=== PATIENT | male | born 1965 | race Caucasian/White ===

== ENCOUNTER 2019-05-17 12:02 | Emergency (ER) | payer MEDICARE ==
[2019-05-17 12:25] LABS: #Basophils 0.1 thou/uL (0.0-0.2); #Eosinphils 0.2 thou/uL (0.0-0.7); #Lymphocytes 2.6 thou/uL (1.20-3.40); #Monocytes 0.7 thou/uL (0.11-0.59); #Neutrophils 10.4 thou/uL (1.40-6.50); %Basophils 0.7 % (0.0-1.0); %Eosinophils 1.2 % (0.0-10.0); %Monocytes 4.8 % (0.0-10.0); %Neutrophils 74.3 % (42.0-75.0); Hemoglobin 16.2 g/dL (14.0-18.0); Mean Corpuscular HGB CONC 33.7 g/dL (32.0-36.0); Mean Corpuscular Hemoglobin 31.3 pg (27.0-31.0); Mean Corpuscular Volume 92.9 fL (78.0-98.0); Mean Platelet Volume 7.8 fL (7.4-10.4); Platelet Count 322 thou/uL (130-400); RBC Distribution Width 11.9 % (11.5-14.5); Red Blood Cell (RBC) Count 5.17 mill/uL (4.70-6.10); White Blood Cell (WBC) Count 13.9 thou/uL (4.8-10.8)
--- NOTE | 2019-05-17 12:31 | CT ---
CT Brain WO Con: 05/17/2019 12:00 AM CLINICAL HISTORY: Fall with right frontal scalp laceration and headache. IMAGING TECHNIQUE: Multiple CT images were obtained of the brain without IV contrast. COMPARISON: None. FINDINGS: Brain: No acute infarct or hemorrhage is evident. No midline shift. Ventricles: Normal. No hydrocephalus.. Skull: Intact.. Visualized Paranasal sinuses: Mild mucosal thickening within the ethmoid air cells.. Mastoid air cells:Clear. Extracranial soft tissues:There is a laceration involving the right frontal scalp. No radiopaque fore ign body is evident. IMPRESSION: No acute intracranial abnormality. Right frontal scalp laceration. Findings called to Dr. Oviedo at 12:28 PM on May 17, 2019.
[2019-05-17 12:33] LABS: INR-International Normal Ratio 1.1; PTT 31.2 SEC (22.9-36.1); Prothrombin Time 14.1 SEC (12.0-14.7)
--- NOTE | 2019-05-17 12:34 | CT ---
CT Cervical Spine WO Con Indication: Fall with neck pain COMPARISON: None. FINDINGS: Fracture: None. Spinal alignment: No acute malalignment. Craniocervical junction: Within normal limits. Vertebral body heights: Maintained. Cervical spine degenerative change: [id number] cervical spondylosis. Lung apices: Clear. IMPRESSION: No acute fracture or subluxation demonstrated. Findings called to Dr. Oviedo with the findings of e CT of the brain.
[2019-05-17 12:51] LABS: ALT (SGPT) 22 U/L (8-55); AST (SGOT) 16 U/L (5-34); Albumin 4.5 g/dL (3.5-5.0); Alkaline Phosphatase 64 U/L (40-110); Anion Gap 9 mmol/L (10-20); BUN (Urea Nitrogen) 16 mg/dL (8.4-25.7); Bilirubin, Total 0.5 mg/dL (0.2-1.2); Calc. Creatinine Clearance 0 mL/min (70-130); Calcium 9.6 mg/dL (7.8-10.44); Carbon Dioxide 27 mmol/L (22-29); Chloride 108 mmol/L (98-107); Estimated GFR-MDRD 68; Globulin 3.2 g/dL (2.4-3.5); Glucose 98 mg/dL (70-105); Lipase 28 U/L (8-78); Potassium 3.9 mmol/L (3.5-5.1); Protein, Total 7.7 g/dL (6.0-8.3); Sodium 140 mmol/L (136-145)
--- NOTE | 2019-05-17 13:02 | RAD ---
RIGHT ANKLE THREE VIEWS: HISTORY: Fall. Right ankle pain. FINDINGS: There is a nondisplaced fracture involving the lateral malleolus. The ankle mortise is maintained. Mi ld soft tissue swelling is present. IMPRESSION: Nondisplaced right lateral malleolar fracture. POS: SAGE
--- NOTE | 2019-05-17 13:04 | RAD ---
EXAM: XR Thoracic Spine 3 V STANDARD DATE: 05/17/2019 12:13 PM INDICATION: Fall with mid back pain COMPARISON: None. FINDING: No acute fracture or subluxation demonstrated. There is scattered degenerative and osteoart hritic change present. IMPRESSION:No acute fracture or subluxation demonstrated.
[2019-05-17] MEDS ORDERED: Ketorolac Tromethamine 30 MG/ML VIAL ONE (14:35)
== END 2019-05-17 14:30 | disposition home or self-care (01) ==
LOC: ERS 12:02
DX: S82.831A Other fracture of upper and lower end of right fibula, initial encounter for closed fracture (principal); S01.81XA Laceration without foreign body of other part of head, initial encounter; F17.210 Nicotine dependence, cigarettes, uncomplicated; W17.89XA Other fall from one level to another, initial encounter
CPT/HCPCS: 12011; 36415; 70450; 72072; 72125; 80053; 83690; 85025; 85610; 85730; 94760; 96372; G0390; J1885